=== PATIENT | male | born 1970 | race Caucasian/White ===

== ENCOUNTER 2020-06-05 12:09 | Observation (INO) | payer BC ==
[2020-06-05] MEDS ORDERED: Sodium Chloride 0.9% 1,000 ML IV ONE (12:45)
[2020-06-05] MEDS ORDERED: Sodium Chloride 0.9% 10 ML Syringe FLUSH PRN (12:45)
--- NOTE | 2020-06-05 12:45 | EDM.PDOC ---
ED HPI GENERAL MEDICAL PROBLEM - General Chief Complaint: General Stated Complaint: low blood pressure Time Seen by Provider: 06/05/20 12:25 Source of Information: Reports: Patient History Limitations: Reports: No Limitations - History of Present Illness INITIAL COMMENTS - FREE TEXT/NARRATIVE: 49 YO WM PRESENTS TO ER COMPLAINING OF DIZZINESS/NEAR SYNCOPE THIS AM. PT REPORTS ONGOING EVALUATION OF SIMILAR SYMPTOMS IN THE PAST BUT TODAY HE TOOK HIS BLOOD PRESSURE AND FOUND IT TO BE LOW PROMPTING ER EVALUATION. PT REPORTS HE HAS BEEN DEALING WITH DIZZINESS/NEAR SYNCOPE SINCE 10/2019. PT REPORTS HE'S HAD MULTIPLE TESTS PERFORMED BY CARDIOLOGY WITHOUT ANY ABNORMAL FINDINGS. PT REPORTS HE'S HAD A HEAD CT IN THE RECENT PAST AND HAD A CT ABD/PELVIS YESTERDAY WHICH WAS NEGATIVE PER REPORT. PT COULD NOT BE MORE SPECIFIC ON CARDIAC TESTS, BUT I BELIEVE HE HAD A TILT TABLE TEST, STRESS TEST AND ECHO CARDIOGRAM. PT REPORTS OVER THE LAST 2 MONTHS HE'S HAD LUQ ABDOMINAL PAIN. PT DENIES CHEST PAIN, SHORTNESS OF BREATH, DIAPHORESIS, NAUSEA/VOMITING. PT REPORTS DIZZINESS/NEAR SYNCOPE ONLY. PT DENIES FEVER/CHILLS, NO COUGH/CONGESTION. PT REPORTS PAIN IS RELIEVED BY LYING ON HIS LEFT SIDE. Onset: Unknown/Unsure Duration: Chronic, Waxing/Waning Location: Reports: Abdomen, Generalized Quality: Reports: Ache Severity: Moderate Improves with: Reports: Other (LYING ON LEFT SIDE) Worsens with: Reports: None. Denies: Breathing, Movement Associated Symptoms: Reports: No Other Symptoms. Denies: Chest Pain, Cough, Diaphoresis, Fever/Chills, Headaches, Nausea/Vomiting, Rash, Seizure, Shortness of Breath, Syncope, Weakness Left Upper Abdomen Pain Score (Numeric/FACES): 7 - Related Data Allergies Allergy/AdvReac Type Severity Reaction Status Date / Time codeine Allergy Nausea and Verified 06/05/20 12:23 Vomiting Home Meds: Home Meds Sildenafil Citrate [Viagra] 50 mg PO DAILY PRN 06/22/16 [History] Testosterone [Androgel] 1 applic TOP DAILY 07/26/17 [History] atorvaSTATin [Lipitor] 20 mg PO BEDTIME 07/26/17 [History] Lisinopril 5 mg PO DAILY 07/28/17 [History] Cetirizine HCl [Zyrtec] 10 mg PO DAILY 06/05/20 [History] Ciprofloxacin HCl [Cipro] 500 mg PO BID 06/05/20 [History] DULoxetine HCl [Cymbalta] 60 mg PO DAILY 06/05/20 [History] Empagliflozin [Jardiance] 25 mg PO DAILY 06/05/20 [History] Etodolac 500 mg PO BID 06/05/20 [History] [place]-3 Fatty Acids/Fish Oil [Fish Oil 1,000 mg Capsule] 1 each PO BEDTIME 06/05/20 [History] metFORMIN HCl [Metformin HCl] 1,000 mg PO BID 06/05/20 [History] metroNIDAZOLE [Flagyl] 500 mg PO Q8H 06/05/20 [History] tiZANidine HCl [Tizanidine HCl] 4 mg PO Q8H PRN 06/05/20 [History] Past Medical History HEENT History: Reports: Hard of Hearing, Impaired Vision, Other (See Below) Other HEENT History: Glasses, 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, color blindness, chronic tinnitus Cardiovascular History: Reports: Arrhythmia, High Cholesterol, Hypertension, Syncope, Other (See Below) Other Cardiovascular History: Near syncope on 07/26/17, Sinus Tachycardia Respiratory History: Reports: COPD, Sleep Apnea, Other (See Below) Other Respiratory History: Patient unable to tolerate CPAP Gastrointestinal History: Reports: GERD Genitourinary History: Reports: Other (See Below) Other Genitourinary History: Erectile dysfunction Musculoskeletal History: Reports: Arthritis, Back Pain, Chronic, Neck Pain, Chronic, Osteoarthritis, Other (See Below) Other Musculoskeletal History: bone spurs in feet Neurological History: Reports: Headaches, Chronic, Migraines Psychiatric History: Reports: Anxiety, Depression Endocrine/Metabolic History: Reports: Diabetes, Type II, Obesity/BMI 30+ Other Endocrine/Metabolic History: Testosterone deficiency, hypoalbuminemia Hematologic History: Reports: None Immunologic History: Reports: None Oncologic (Cancer) History: Reports: None Dermatologic History: Reports: None - Infectious Disease History Infectious Disease History: Reports: Chicken Pox - Past Surgical History Head Surgeries/Procedures: Reports: None HEENT Surgical History: Reports: Adenoidectomy, Oral Surgery, Tonsillectomy, Other (See Below) Other HEENT Surgeries/Procedures: Tonsillectomy and adenoidectomy at about age 18, [place] teeth extraction 3 at age 18 Cardiovascular Surgical History: Reports: None Respiratory Surgical History: Reports: None GI Surgical History: Reports: Appendectomy, Colonoscopy, EGD, Other (See Below) Other GI Surgeries/Procedures: Appendectomy at age 17, EGD and colonoscopy in 1991 Male Surgical History: Reports: Circumcision, Vasectomy, Other (See Below) Other Male Surgeries/Procedures: Circumcision as an , vasectomy at age 25 Endocrine Surgical History: Reports: None Neurological Surgical History: Reports: None Musculoskeletal Surgical History: Reports: None Oncologic Surgical History: Reports: None Dermatological Surgical History: Reports: None - Past Imaging History Past Imaging History: Reports: MRI (MRI of the right shoulder in about 2011), Sleep Study Social & Family History - Family History Family Medical History: Noncontributory HEENT: Reports: None Cardiac: Reports: Bypass, CAD, RI, Other (See Below) Other Cardiac Family History: Maternal uncle with RI in his 40s, mother with CABG x4 in her 60s with history of silent MIs Respiratory: Reports: Asthma, COPD, Other (See Below) Other Respiratory Family Hisory: 3 children of asthma, maternal grandfather with COPD with history of tobacco use, father with possible COPD secondary to tobacco use GI: Reports: Colon Polyps, Pancreatitis, Other (See Below) Other GI Family History: maternal father with colonic polyps, father with history pancreatitis secondary to alcohol abuse : Reports: None OBGYN: Reports: None Musculoskeletal: Reports: None Neurological: Reports: CVA, Seizure, Other (See Below) Other Neurological Family History: paternal great grandmother with CVA at about age 92, son with seizures since age 16 secondary to football injury Psychiatric: Reports: Anxiety, Depression, Other (See Below) Other Psychiatric Family History: Father with history of alcohol abuse, anxiety, and depression with subsequent postoperative narcotic addiction Endocrine/Metabolic: Reports: Diabetes, type II, IDDM, Other (See Below) Other Endocrine/Metabolic Family History: IDDM in parents Hematologic: Reports: Anemia, Other (See Below) Other Hematologic Family History: Father with postoperative anemia Immunologic: Reports: None Dermatologic: Reports: Eczema, Other (See Below) Other Dermatologic Family History: Son with eczema Oncologic: Reports: Colon, Pancreatic, Other (See Below) Other Oncologic Family History: Paternal grandmother with fatal pancreatic cancer in her 80s, possible fatal colon cancer in maternal grandfather in his 80s, paternal grandaunt with fatal unknown type of cancer in her 60s - Tobacco Use Smoking Status *Q: Current Every Day Smoker Years of Tobacco use: 15 Packs/Tins Daily: 0.2 Second Hand Smoke Exposure: No - Caffeine Use Caffeine Use: Reports: Soda - Alcohol Use Days Per Week of Alcohol Use: 3 Number of Drinks Per Day: 3 Total Drinks Per Week: 9 - Recreational Drug Use Recreational Drug Use: No - Living Situation & Occupation Living situation: Reports: (2005, 3 children), Alone 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 Denies: Chest Pain, Dyspnea on Exertion, Edema, Orthopnea, Palpitations, PND, Syncope Endocrine: Reports: No Symptoms GI/Abdominal: Reports: No Symptoms : Reports: No Symptoms Musculoskeletal: Reports: No Symptoms Skin: Reports: No Symptoms Neurological: Reports: No Symptoms Psychiatric: Reports: No Symptoms Hematologic/Lymphatic: Reports: No Symptoms Immunologic: Reports: No Symptoms ED EXAM, GENERAL - Physical Exam Exam: See Below Exam Limited By: No Limitations General Appearance: Alert, WD/WN, No Apparent Distress Eye Exam: Bilateral Eye: EOMI, PERRL Ears: Normal External Exam, Normal Canal, Hearing Grossly Normal, Normal TMs Throat/Mouth: Normal Inspection, Normal Lips, Normal Teeth, Normal Gums, Normal Oropharynx, Normal Voice, No Airway Compromise Head: Atraumatic, Normocephalic Neck: Normal Inspection, Supple, Non-Tender, Full Range of Motion Respiratory/Chest: No Respiratory Distress, Lungs Clear, Normal Breath Sounds, No Accessory Muscle Use, Chest Non-Tender Cardiovascular: Normal Peripheral Pulses, Regular Rate, Rhythm, No Edema, No Gallop, No JVD, No Murmur, No Rub GI/Abdominal: Normal Bowel Sounds, Soft, Non-Tender, No Organomegaly, No Distention, No Abnormal Bruit, No Mass Back Exam: Normal Inspection, Full Range of Motion, NT Extremities: Normal Inspection, Normal Range of Motion, Non-Tender, Normal Capillary Refill, No Pedal Edema Neurological: Alert, Oriented, CN II-XII Intact, Normal Cognition, Normal Gait, Normal Reflexes, No Motor/Sensory Deficits Psychiatric: Normal Affect, Normal Mood Skin Exam: Warm, Dry, Intact, Normal Color, No Rash Lymphatic: No Adenopathy EKG INTERPRETATION EKG Date: 06/05/20 Time: 13:08 Rhythm: NSR Rate (Beats/Min): 53 [place]: Normal P-Wave: Present QRS: Normal ST-T: Normal QT: Normal Comparison: NA - No Prior EKG Course - Vital Signs Last Recorded V/S: Last Vital Signs Temp 36.1 C 06/05/20 12:14 Pulse 50 L 06/05/20 12:14 Resp 18 06/05/20 12:14 BP 100/66 06/05/20 12:14 Pulse Ox 96 06/05/20 12:14 Orthostatic Blood Pressure [ 102/63 Standing] Orthostatic Blood Pressure [ 99/72 Sitting] Orthostatic Blood Pressure [ 98/65 Supine] - Orders/Labs/Meds Orders: Active Orders 24 hr Category Date Time Status EKG Documentation Completion [RC] ASDIRECTED Care 06/05/20 12:46 Ordered Orthostatic Vital Signs [RC] ASDIRECTED Care 06/05/20 12:45 Ordered Peripheral IV Care [RC] . DIRECTED Care 06/05/20 12:46 Ordered Sodium Chloride 0.9% @ 999 MLS/HR (1000ml) Med 06/05/20 12:45 Ordered Sodium Chloride 0.9% [Normal Saline] 1,000 ml IV .BOLUS Sodium Chloride 0.9% [Saline Flush] Med 06/05/20 12:45 Ordered 10 ml FLUSH Q8HR PRN Peripheral IV Insertion Adult [OM.PC] Routine Oth 06/05/20 12:45 Ordered EKG 12 Lead [EK] Stat Ther 06/05/20 12:45 Ordered Medication Orders Sodium Chloride (Normal Saline) 1,000 mls @ 999 mls/hr IV .BOLUS ONE Stop: 06/05/20 13:45 Last Admin: 06/05/20 13:10 Dose: 999 mls/hr Documented by: DANIA Sodium Chloride (Saline Flush) 10 ml FLUSH Q8HR PRN PRN Reason: keep vein open Labs: Laboratory Tests 06/05/20 06/05/20 Range/Units 12:55 12:55 WBC 6.00 (5.00-10.00) 10^3/uL RBC 5.43 (4.50-6.00) 10^6/uL Hgb 16.2 (13.0-17.0) g/dL Hct 49.3 (40.0-52.0) % MCV 90.8 (82.0-92.0) fL MCH 29.8 (27.0-31.0) pg MCHC 32.9 (32.0-36.0) g/dL RDW 12.7 (11.5-14.5) % Plt Count 266 (150-400) 10^3/uL MPV 8.9 (7.4-10.4) fL Immature Gran % (Auto) 0.0 (0.0-5.0) % Neut % (Auto) 53.7 (50.0-70.0) % Lymph % (Auto) 34.7 (20.0-40.0) % [place] % (Auto) 8.0 (2.0-8.0) % Eos % (Auto) 3.3 H (1.0-3.0) % Baso % (Auto) 0.3 (0.0-1.0) % Neut # (Auto) 3.22 (2.50-7.00) 10^3/uL Lymph # (Auto) 2.08 (1.00-4.00) 10^3/uL [place] # (Auto) 0.48 (0.10-0.80) 10^3/uL Eos # (Auto) 0.20 (0.10-0.30) 10^3/uL Baso # (Auto) 0.02 (0.00-0.10) 10^3/uL Immature Gran # (Auto) 0.00 (0.00-0.50) 10^3/uL Sodium 138 (136-145) mmol/L Potassium 4.4 (3.3-5.3) mmol/L Chloride 103 (98-115) mmol/L Carbon Dioxide 27.3 (21.0-32.0) mmol/L Anion Gap 12.1 (5-15) mmol/L BUN 20 (6-25) mg/dL Creatinine 1.11 (0.51-1.17) mg/dL Est Cr Clr Drug Dosing 82.21 mL/min Estimated GFR (MDRD) > 60 mL/min Glucose 98 (75 - 99) mg/dL Calcium 8.9 (8.7-10.3) mg/dL Total Bilirubin 0.8 (0.2-1.0) mg/dL AST 15 (15-37) U/L ALT 29 (12-78) U/L Alkaline Phosphatase 41 L (46-116) IU/L Creatine Kinase 193 (26-276) U/L CK-MB (CK-2) 2.30 (0.00-4.30) ng/mL Troponin I 0.12 H* (0.00-0.070) ng/mL Total Protein 7.2 (6.4-8.2) g/dL Albumin 3.91 (3.00-4.80) g/dL Lipase 124 (73-393) U/L Meds: Medications Generic Name Dose Route Start Last Admin Trade Name Freq PRN Reason Stop Dose Admin Sodium Chloride 1,000 mls @ 999 mls/hr 06/05/20 12:45 06/05/20 13:10 Normal Saline IV 06/05/20 13:45 999 mls/hr .BOLUS ONE Administration Sodium Chloride 10 ml 06/05/20 12:45 Saline Flush FLUSH Q8HR PRN keep vein open Discontinued Medications Generic Name Dose Route Start Last Admin Trade Name Freq PRN Reason Stop Dose Admin Ketorolac Tromethamine 30 mg 06/05/20 12:58 06/05/20 13:11 Toradol IVPUSH 06/05/20 12:59 30 mg ONETIME ONE Administration - Radiology Interpretation Free Text/Narrative:: CXR-NAD Departure - Departure Time of Disposition: 13:53 Disposition: Refer to Observation Condition: Good Clinical Impression: Near syncope, Elevated troponin I level - Discharge Information Referrals: Elmer Mccoy MD [Primary Care Provider] - Forms: ED Department Discharge Sepsis Event Note (ED) - Evaluation Sepsis Screening Result: No Definite Risk - Focused Exam Vital Signs: Vital Signs Temp Pulse Resp BP Pulse Ox 06/05/20 12:14 36.1 C 50 L 18 100/66 96 - My Orders Last 24 Hours: My Active Orders 06/05/20 12:45 Orthostatic Vital Signs [RC] ASDIRECTED Sodium Chloride 0.9% @ 999 MLS/HR (1000ml) Sodium Chloride 0.9% [Normal Saline] 1,000 ml IV .BOLUS Sodium Chloride 0.9% [Saline Flush] 10 ml FLUSH Q8HR PRN Peripheral IV Insertion Adult [OM.PC] Routine EKG 12 Lead [EK] Stat 06/05/20 12:46 EKG Documentation Completion [RC] ASDIRECTED Peripheral IV Care [RC] . DIRECTED - Assessment/Plan Last 24 Hours: My Active Orders 06/05/20 12:45 Orthostatic Vital Signs [RC] ASDIRECTED Sodium Chloride 0.9% @ 999 MLS/HR (1000ml) Sodium Chloride 0.9% [Normal Saline] 1,000 ml IV .BOLUS Sodium Chloride 0.9% [Saline Flush] 10 ml FLUSH Q8HR PRN Peripheral IV Insertion Adult [OM.PC] Routine EKG 12 Lead [EK] Stat 06/05/20 12:46 EKG Documentation Completion [RC] ASDIRECTED Peripheral IV Care [RC] . DIRECTED Assessment:: 1. NEAR SYNCOPE 2. TROP I ELEVATION Plan: 1. ADMIT TO OBS- DR JUAREZ ACCEPTING 2. TROP I Q 4 X 3 3. ASA 325MG PO QD 4. SUPPORTIVE CARE 5. REPEAT EKG IN 4 HOURS 6. ALL ORDERS GIVEN VERBALLY PER DR LARRY LUNA
[2020-06-05] MEDS ORDERED: Ketorolac 30 MG/ML SDV IVPUSH ONE (12:58)
--- NOTE | 2020-06-05 13:26 | CR ---
[id number] RAD/RAD Chest PA And Lateral EXAM: FRONTAL AND LATERAL CHEST INDICATION: SYNCOPE. COMPARISON: None. DISCUSSION: There is mild elevation of the right hemidiaphragm. The lungs are clear. The heart is normal in size. IMPRESSION: 1. No acute findings. Favian Roque MD 06/05/20 1290 Thank you for allowing us to participate in the care of your patient.
[2020-06-05 13:35] LABS: ANION GAP 12.1 mmol/L (5-15); CHLORIDE,CL 103 mmol/L (98-115); SODIUM,NA 138 mmol/L (136-145)
[2020-06-05] MEDS ORDERED: Aspirin 81 MG Tab.Chew PO ONE (13:51)
[2020-06-05] MEDS: Sodium Chloride 0.9% 1,000 ML IV SCH ×2 (15:44→23:41)
[2020-06-05] MEDS ORDERED: tiZANidine 4 MG Tab PO PRN (17:35)
[2020-06-05] MEDS ORDERED: Acetaminophen 500 MG Tab PO PRN (19:10)
[2020-06-05] MEDS ORDERED: Ondansetron 4 MG/2 ML SDV IVPUSH PRN (19:44)
--- NOTE | 2020-06-05 19:49 | HP ---
PATIENT PROFILE: The patient is a 49-year-old gentleman from [place], [place], who presented to the emergency room earlier in the morning. His main complaint at the time of his presentation to the emergency room was dizziness and near syncopal episode. The patient has been evaluated for this in the past. Today, he took his blood pressure and found to be quite low, prompting his ER evaluation. He has been dealing with the dizziness and near- syncope since October 2019. Apparently, he has had multiple tests performed by Cardiology without any abnormal findings including a tilt test. He had a head CT in the past and a recent CT abdomen and pelvis, which was negative for any acute problems. He previously has had a stress test and echocardiogram and tiolt table test also. Over the last two months, he has been complaining of left upper quadrant pain. Currently, he denies having any chest pain, shortness of breath, diaphoresis, nausea or vomiting. He only has dizziness and near syncope. He denies having any fever, chills, abdomen pain, cough, congestion. He does have some pain which is relieved by lying on his left side. His CAT scan did show some mild diverticulosis without acute diverticulitis. Status post appendectomy. He does have a smaller right kidney and hypertrophic left kidney. Etiology of the smaller right kidney is not known at this time. PAST MEDICAL HISTORY: Of this patient includes: ENT and Vision: HISTORY: He does have some hardness of hearing and slightly impaired vision. He wears glasses. 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 No color blindness. He does have chronic tinnitus. CARDIOVASCULAR HISTORY: He has some slight high blood pressure, high cholesterol. Please see present history and history of arrhythmia. The patient had near syncope on 07/26/2017. He had sinus tachycardia at that time. RESPIRATORY: No complaints. The patient has had some sleep apnea issues, but was unable to tolerate the CPAP machine. GASTROINTESTINAL HISTORY: The patient does have GERD. HISTORY: Negative except for erectile dysfunction. He does take sildenafil for that problem on a p.r.n. basis. MUSCULOSKELETAL HISTORY: The patient does have history of arthritis with the back pain, chronic neck pain. He has some bone spurs in his feet. NEUROLOGICAL HISTORY: Occasional headaches and chronic migraines. PSYCHIATRIC HISTORY: He does have anxiety, depression. ENDOCRINE: Metabolic. He does have type 2 diabetes mellitus. He does have a BMI of 30+. The patient has testosterone deficiency and slight hypoalbuminemia. INFECTIOUS DISEASE: The patient had chicken pox. PAST SURGICAL HISTORY: PAST HEAD AND NECK PROCEDURES: He has had adenoidectomy, oral surgery, tonsillectomy at age 18. [place] tooth extraction at age 18. CARDIOVASCULAR SURGICAL HISTORY: None. RESPIRATORY SURGICAL HISTORY: Nil. GI SURGICAL HISTORY: Appendectomy, colonoscopy, EGD. The last colonoscopy was in 1991. EGD was also done at that time. PAST GENITAL SURGICAL HISTORY: Circumcision, vasectomy. ENDOCRINE SURGICAL HISTORY: None. NEUROSURGICAL HISTORY: None. MUSCULOSKELETAL SURGICAL HISTORY: None. ONCOLOGICAL SURGICAL HISTORY: None. DERMATOLOGICAL SURGICAL HISTORY: None. PAST IMAGING HISTORY: MRI of the right shoulder in 2011, sleep study. FAMILY HISTORY: Mother had history of coronary disease at an early age. Also has history of silent MIs. In addition she had coronary artery bypass surgery. HEENT: Negative. CARDIAC: The patient's mother had bypass surgery and coronary artery disease at an early age. Maternal uncle also had DE in his 40s. Mother had CABG in his 60s with history of silent MIs. RESPIRATORY: History of asthma, COPD, others. Family history showed three three children with asthma. Maternal grandfather with COPD and tobacco usage. Father has possible COPD secondary to tobacco usage. GI SYSTEM: He has had a history of colon polyps and pancreatitis in the past. Other GI family history nil. MUSCULOSKELETAL: Negative. NEUROLOGICAL: No history of CVA, seizures. PSYCHIATRIC HISTORY: With anxiety, depression. IMMUNOLOGICAL: Negative. DERMATOLOGICAL: Negative. SOCIAL HISTORY: TOBACCO USE: The patient is a current every day smoker. Years of use is 15. He smokes 0.2 packs a day. Secondhand smoke exposure negative. CAFFEINE: Reports using soda. ALCOHOL: 3 days of a week, three drinks per day, total drinks 9. RECREATIONAL DRUG USE: Nil. LIVING SITUATION, OCCUPATION: He is in 2004. Three children. 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 REVIEW OF SYSTEMS: CONSTITUTIONAL: Negative. HEENT: Negative. RESPIRATORY: Negative. CARDIOVASCULAR: See present history. ENDOCRINE: See present history. GI: Abdomen, see present history. MUSCULAR SYSTEM: See present history. SKIN: Negative. NEUROLOGIC: Negative. HEMATOLOGIC: Negative. PHYSICAL EXAMINATION: GENERAL: Reveals a very pleasant, slightly obese gentleman in no immediate distress. He was seen in his room. He is comfortable. VITAL SIGNS: Pulse is 50, respirations are 18, blood pressure 100/66, pulse oximetry is 96, temperature is normal. HEAD: Negative. EYES: Normal. ENT: Negative. NECK: Supple. Full range of motion. No midline swellings. No bruits are heard. HEART/LUNGS: Stable. ABDOMEN: Soft, slight tenderness in the left lower quadrant. No rebound. No rigidity. No masses. Bowel tones normal. Femoral pulses are good. BACK: Negative. EXTREMITIES: Normal. NEUROLOGICAL: Intact. PSYCHIATRIC: Negative. SKIN: Negative. LYMPHATIC: Negative. DIAGNOSTIC STUDIES: EKG shows normal sinus rhythm, heart rate 53, P-wave present, QRS normal, ST-T normal, QT normal. Initial blood pressure was between 99/72 to 102/63. He was started on IV fluids. His hemoglobin is 16.2, white count 6000. Electrolytes are normal. BUN and creatinine are normal. Troponin level was 0.12 on admission and 4 hours later was the same at 0.12. Total protein, albumin, and lipase were negative. FINAL DIAGNOSES: 1. History of low blood pressure, near syncope, and dizziness. Exact etiology is not determined. The patient did have some loose stools over the last couple of days. It could be due to slight dehydration. The patient is on low-dose lisinopril at 2.5 mg, and I doubt that this has anything to do with his low blood pressure. ? Diabetic autonomic neuropathy. 2. Type 2 diabetes mellitus, stable. 3. History of mild diverticulosis, but no diverticulitis. Status post appendectomy. 4. Slightly atrophic right kidney and hypertrophic left kidney. 5. History of depression. 6. History of hypercholesteremia. 7. History of musculoskeletal arthritis. 8. History of erectile dysfunction. PLAN: Will be to admit to the hospital. Repeat EKG and cardiac enzymes. Monitor his blood pressures. Continue IV fluids. Start him back on atorvastatin 20 mg daily, lisinopril 2.5 mg daily. Continue Jardiance 25 mg daily, tizanidine 4 mg q.8 h. on a p.r.n. basis. Hold Cipro and Flagyl as no evidence of acute diverticulitis or infection is found at this time. May use zyrtec for allergies. May also continue AndroGel. Hold Viagra. Follow up closely. /[id number]/MODL [id number]
[2020-06-05] MEDS: Morphine 2 MG/ML SYRINGE IVPUSH PRN ×2 (20:25→23:41)
[2020-06-05] MEDS: Sodium Chloride 0.9% 10 ML Syringe FLUSH PRN ×2 (20:33→23:42)
[2020-06-05] MEDS ORDERED: metFORMIN 500 MG Tab.ER PO SCH (21:00)
[2020-06-05] MEDS ORDERED: Lisinopril 5 MG Tab PO SCH (21:00)
[2020-06-05] MEDS ORDERED: ETODOLAC 500 MG PO SCH (21:00)
[2020-06-05] MEDS ORDERED: atorvaSTATin 40 MG Tab PO SCH (21:00)
[2020-06-06] MEDS: Aluminum Hydroxide/Magnesium Hydroxide/Simethicone Susp 30 ML Cup PO PRN ×2 (01:57→07:25)
[2020-06-06] MEDS: Morphine 2 MG/ML SYRINGE IVPUSH PRN ×2 (04:43→07:34)
[2020-06-06] MEDS: Sodium Chloride 0.9% 10 ML Syringe FLUSH PRN (04:44)
[2020-06-06] MEDS: Sodium Chloride 0.9% 1,000 ML IV SCH (07:42)
[2020-06-06] MEDS ORDERED: TESTOSTERONE TOP SCH (09:00)
[2020-06-06] MEDS ORDERED: Cetirizine 10 MG Tab PO SCH (09:00)
[2020-06-06] MEDS ORDERED: DULoxetine 30 MG Cap PO SCH (09:00)
[2020-06-06] MEDS ORDERED: Dicyclomine 20 MG/2 ML SDV IM ONE (10:51)
[2020-06-06 11:42] VITALS: PULSE 63
[2020-06-06 13:36] VITALS: BP 144/100
--- NOTE | 2020-06-08 11:22 | PCM.DCSUM1 ---
Discharge Summary - Hospital Course Diagnosis: Stroke: No - Discharge Data Discharge Date: 06/06/20 Discharge Disposition: Home, Self-Care 01 Condition: Good - Referral to Home Health Primary Care Physician: Elmer Mccoy MD - Patient Instructions Diet: Drink 8-10+ Glasses/Day Diet, Other: gradually increase fiber in diet. See details Activity: Rest and Relax Today Driving: May Drive Today Showering/Bathing: May Shower Notify Provider of: Fever, Increased Pain, Nausea and/or Vomiting Other/Special Instructions: Recommendations include: Diet changes are often enough to control symptoms. The main changes are adding fiber (roughage) and drinking more water. Fiber absorbs water as it travels through your colon. This helps your stool stay soft and move smoothly. Water helps this process. If needed, you may be told to take [id number] stool softeners. To help ease pain, antispasmodic medicines may be prescribed. Watch for changes in your bowel movements. Tell your healthcare provider if you notice any changes. Begin an exercise program. Ask your healthcare provider how to get started. Get plenty of rest and sleep.. If you have diverticulitis. Treatment depends on how bad your symptoms are. For mild symptoms. You may be put on a liquid diet for a short time. Antibiotics are usually prescribed. If these 2 steps relieve your symptoms, you may then be prescribed a high-fiber diet. If you still have symptoms, your healthcare provider will discuss more treatment choices with you. For severe symptoms. You may need to be admitted to the hospital. There, you can be given IV antibiotics and fluids. You will also be put on a low-fiber or liquid diet. Although not common, surgery is needed in some people with severe symptoms. [place] to colon health. Help keep your colon healthy with a diet that includes plenty of high-fiber fruits, vegetables, and whole grains. Drink plenty of liquids like water and juice. Maintain a healthy lifestyle, including regular exercise, stress management, and adequate rest and sleep.. Modifiable risk factors: Tobacco use, over weight, diet, excercise, stress reduction - Discharge Plan *PRESCRIPTION DRUG MONITORING PROGRAM REVIEWED*: Not Applicable *COPY OF PRESCRIPTION DRUG MONITORING REPORT IN PATIENT JAY: Not Applicable Prescriptions/Med Rec: Aspirin 81 mg PO DAILY #30 tab.chew Omeprazole 20 mg PO ACBREAKFAST #30 cap.sr Home Medications: Home Meds Testosterone [Androgel] 1 applic TOP DAILY 07/26/17 [History] atorvaSTATin [Lipitor] 40 mg PO BEDTIME 07/26/17 [History] Lisinopril 2.5 mg PO BEDTIME 07/28/17 [History] Cetirizine HCl [Zyrtec] 10 mg PO DAILY 06/05/20 [History] DULoxetine HCl [Cymbalta] 60 mg PO DAILY 06/05/20 [History] Empagliflozin [Jardiance] 25 mg PO DAILY 06/05/20 [History] Etodolac 500 mg PO BID 06/05/20 [History] [place]-3 Fatty Acids/Fish Oil [Fish Oil 1,000 mg Capsule] 1 each PO BEDTIME 06/05/20 [History] metFORMIN HCl [Metformin HCl ER] 1,000 mg PO BID 06/05/20 [History] tiZANidine HCl [Tizanidine HCl] 4 mg PO Q8H PRN 06/05/20 [History] Aspirin 81 mg PO DAILY #30 tab.chew 06/06/20 [Rx] Omeprazole 20 mg PO ACBREAKFAST #30 cap.sr 06/06/20 [Rx] Referrals: Elmer Mccoy MD [Primary Care Provider] - - Discharge Summary/Plan Comment DC Time >30 min.: Yes Discharge Summary/Plan Comment: Final diagnosis Non-STEMI, possible type II Rule out limited flow disease Acid reflux Diverticula, acute on chronic History summary 49-year-old obese gentleman was admitted through the ED into observation for rule out LA. Patient had initially came to the ED with some dizziness and near syncope the morning of admission. At home he felt his blood pressure to be low so he reported to the ED. He has had labile blood pressures and has been worked up in the past for this without any definitive etiology other than making adjustments to his low dose ADONIS inhibitor. It was noted for him to have slightly elevated cardio biomarkers in the ED with a BP 100/66 along with dizziness. His main PCP is ASHLEIGH Moreno however he did see Krupa Monteiro [facility] in which an abdominal CT scan (see results below). Patient report over the last 2 months with left upper quadrant abdominal pain. In the ED he did not complain of chest pain shortness of breath diaphoresis nausea or vomiting or any fever or chills or any upper respiratory type symptoms. His pain was reported to be relieved by lying on his left side. A she was placed on Cipro and Flagyl as outpatient due to diverticula however since CT scan did not demonstrate any inflammation this was discontinued on admission. He was given IV fluids. ED/Hospital course Admitted to observation, initial blood pressure low, he was continued on low- dose lisinopril. BP in ED 100/66, afebrile, neg covid-19, electrolytes normal, troponin slightly elevated at 0.12 and subsequent troponins were about the same. Normal renal indices. He was placed on telemetry with no overnight calls of concerning conduction problems or telemetry problems. He was given Mylanta and is epigastric pain dissolved instantly. EKG shows normal sinus rhythm heart rate 53 all else normal. Full dose 324 aspirin given 1. He was not placed on any anticoagulants. 's main concern while in the hospital was ongoing chronic left lower lobe abdominal pain. He was given increased fiber for dietary purpos es. Prior to discharge this author gave him 20 mg of Bentyl IM 1 and he did have some relief of his abdominal pain. Diagnostics --06/04/2020; abdominal CT with contrast, although no acute process Incidentally demonstrate a small intraluminal lipoma within second portion of duodenum. Colon: There are diverticula scattered along the sigmoid colon without acute diverticulitis. Other than this, the colon is grossly unremarkable. --07/2017; echocardiogram; EF 55%, pericardial fat otherwise non-concerning --07/2017; stress echo (due to chest pain) normal, other than isolated premature ventricular beats Consultations [facility] hospitalist was consulted as I cannot reach [place] keg filler. His [place] chart was reviewed carefully by on-call hospitalist and noted November 2019 had normal Lexiscan. [facility] he had seen his primary care provider linden crystal adjustments made on BP meds. 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 We will contact the patient. Patient was given careful instructions regarding diverticula, likely possible sigmoid resection, full workup with cardiology soon. Modifiable risk factor reduction important. He is to report to the ED for any chest pain or further dizziness. If microalbumin is normal I recommend removing off of ADONIS inhibitor. Follow-up Tuesday with myself [facility]. Patient agreed with plan. - General Info Functional Status: Reports: Ambulating. Denies: Pain Controlled (Left sided abdominal pain chronic), New Symptoms - Review of Systems General: Denies: Fever, Weakness, Fatigue, Malaise HEENT: Reports: No Symptoms Pulmonary: Reports: No Symptoms Cardiovascular: Reports: No Symptoms Gastrointestinal: Reports: Abdominal Pain, Other (Mild acid reflux symptoms, resolved with antacids immediately). Denies: Constipation, Decreased Appetite, Diarrhea, Difficulty Swallowing, Flatus, Hematochezia, Melena, Nausea, Vomiting Genitourinary: Reports: No Symptoms Musculoskeletal: Reports: No Symptoms Skin: Reports: No Symptoms Neurological: Reports: No Symptoms Psychiatric: Reports: No Symptoms - Patient Data Vitals - Most Recent: Last Vital Signs Temp 97 F 06/06/20 11:00 Pulse 63 06/06/20 11:00 Resp 16 06/06/20 11:00 BP 144/100 H 06/06/20 13:36 Pulse Ox 97 06/06/20 11:00 Orthostatic Blood Pressure [ 102/63 Standing] Orthostatic Blood Pressure [ 99/72 Sitting] Orthostatic Blood Pressure [ 98/65 Supine] Weight - Most Recent: 225 lb 3.2 oz Med Orders - Current: Current Medications Discontinued Medications Acetaminophen (Tylenol Extra Strength) 500 mg PO Q6H PRN PRN Reason: Pain Al Hydroxide/Mg Hydroxide (Mag-Al Plus) 30 ml PO QID PRN PRN Reason: Heartburn Last Admin: 06/06/20 07:25 Dose: 30 ml Documented by: Aspirin (Aspirin) 324 mg PO ONETIME ONE Stop: 06/05/20 13:52 Last Admin: 06/05/20 14:02 Dose: 324 mg Documented by: Atorvastatin Calcium (Lipitor) 40 mg PO BEDTIME [facility] Last Admin: 06/05/20 21:20 Dose: 40 mg Documented by: Cetirizine HCl (Zyrtec) 10 mg PO DAILY [facility] Last Admin: 06/06/20 08:05 Dose: 10 mg Documented by: Dicyclomine HCl (Bentyl) 20 mg IM ONETIME ONE Stop: 06/06/20 10:52 Last Admin: 06/06/20 11:49 Dose: 20 mg Documented by: Duloxetine HCl (Cymbalta) 60 mg PO DAILY [facility] Last Admin: 06/06/20 08:05 Dose: 60 mg Documented by: Sodium Chloride (Normal Saline) 1,000 mls @ 999 mls/hr IV .BOLUS ONE Stop: 06/05/20 13:45 Last Admin: 06/05/20 13:10 Dose: 999 mls/hr Documented by: Sodium Chloride (Normal Saline) 1,000 mls @ 125 mls/hr IV ASDIRECTED [facility] Last Admin: 06/06/20 07:42 Dose: 125 mls/hr Documented by: Ketorolac Tromethamine (Toradol) 30 mg IVPUSH ONETIME ONE Stop: 06/05/20 12:59 Last Admin: 06/05/20 13:11 Dose: 30 mg Documented by: Lisinopril (Prinivil) 2.5 mg PO BEDTIME [facility] Last Admin: 06/05/20 21:19 Dose: 2.5 mg Documented by: Metformin HCl (Glucophage Xr) 1,000 mg PO BID [facility] Morphine Sulfate (Morphine) 2 mg IVPUSH Q2H PRN PRN Reason: Pain Last Admin: 06/06/20 07:34 Dose: 2 mg Documented by: Non-Formulary Medication (Etodolac [Etodolac]) 500 mg PO BID [facility] Non-Formulary Medication (Testosterone [Androgel]) 1 applic TOP DAILY [facility] Ondansetron HCl (Zofran) 4 mg IVPUSH Q6H PRN PRN Reason: Nausea/Vomiting Sodium Chloride (Saline Flush) 10 ml FLUSH Q8HR PRN PRN Reason: keep vein open Sodium Chloride (Saline Flush) 10 ml FLUSH Q8HR PRN PRN Reason: keep vein open Last Admin: 06/06/20 04:44 Dose: 10 ml Documented by: Tizanidine HCl (Zanaflex) 4 mg PO Q8H PRN PRN Reason: Muscle Spasm - Exam Quality Assessment: Denies: Supplemental Oxygen General: Reports: Alert, Oriented Neck: Reports: Supple Lungs: Reports: Clear to Auscultation, Normal Respiratory Effort Cardiovascular: Reports: Regular Rate, Regular Rhythm GI/Abdominal Exam: Normal Bowel Sounds, No Distention, No Abnormal Bruit, No Mass. No: Rigid, Rebound, Abnormal Bowel Sounds Rectal (Males) Exam: Deferred Back Exam: Denies: CVA Tenderness (L), CVA Tenderness (R) Extremities: Normal Capillary Refill Psy/Mental Status: Reports: Alert, Normal Affect, Normal Mood
== END 2020-06-06 15:00 | disposition home or self-care (01) ==
LOC: KA.ED 12:09 → KA.MS 13:54
PROVIDERS: ADMIT Physician Assistant Medical; ATTEND Family Medicine
DX: I21.4 Non-ST elevation (NSTEMI) myocardial infarction (principal); I95.9 Hypotension, unspecified; K21.9 Gastro-esophageal reflux disease without esophagitis; E78.00 Pure hypercholesterolemia, unspecified; I10 Essential (primary) hypertension; R19.5 Other fecal abnormalities; J44.9 Chronic obstructive pulmonary disease, unspecified; G47.30 Sleep apnea, unspecified; E11.9 Type 2 diabetes mellitus without complications; E66.9 Obesity, unspecified; F41.9 Anxiety disorder, unspecified; F32.9 Major depressive disorder, single episode, unspecified; F17.210 Nicotine dependence, cigarettes, uncomplicated; K57.90 Diverticulosis of intestine, part unspecified, without perforation or abscess without bleeding; E86.0 Dehydration; N28.81 Hypertrophy of kidney; N26.1 Atrophy of kidney (terminal); Z87.39 Personal history of other diseases of the musculoskeletal system and connective tissue; Z79.899 Other long term (current) drug therapy; Z88.5 Allergy status to narcotic agent; Z79.84 Long term (current) use of oral hypoglycemic drugs; Z87.438 Personal history of other diseases of male genital organs; Z79.82 Long term (current) use of aspirin; Z68.32 Body mass index [BMI] 32.0-32.9, adult; Z20.828 Contact with and (suspected) exposure to other viral communicable diseases
CPT/HCPCS: 36415; 71046; 80053; 82550; 82553; 83690; 84484; 85025; 93005; 96361; 96372; 96374; 96375; 96376; 99284; 99285-25; A9270-GY; G0378; J0500; J1885; J2270; J7030; U0002

== ENCOUNTER 2020-07-28 08:01 | Day surgery (SDC) | payer BC, OTHER ==
[~2020-07-28 08:01] MED LIST: Sodium Chloride 0.9% 1,000 ML IV SCH; Sodium Chloride 0.9% 10 ML Syringe FLUSH PRN
[2020-07-28] MEDS ORDERED: Ondansetron 4 MG/2 ML SDV IV ONE (08:02)
[2020-07-28] MEDS ORDERED: Midazolam 1 MG/ML 2 ML SDV IV ONE (08:02)
[2020-07-28] MEDS ORDERED: Propofol 200 MG/20 ML SDV IV ONE (08:02)
[2020-07-28] MEDS ORDERED: Propofol 200 MG/20 ML SDV ONE (09:07)
[2020-07-28] MEDS ORDERED: Ketamine 200 MG/20 ML MDV ONE (09:07)
[2020-07-28] MEDS ORDERED: Midazolam 1 MG/ML 2 ML SDV ONE (09:07)
[2020-07-28] MEDS ORDERED: Glycopyrrolate 0.2 MG/ML SDV ONE (09:07)
[2020-07-28] MEDS ORDERED: Sodium Chloride 0.9% 1,000 ML ONE (10:03)
--- NOTE | 2020-07-28 10:42 | PCM.PRNOTE ---
- Free Text/Narrative Note: PROCEDURE PERFORMED: 1) Esophagogastroduodenoscopy with biopsy 2) Colonoscopy PRE-PROCEDURE DIAGNOSIS/INDICATION FOR PROCEDURE: Persistent epigastric and LUQ abdominal pain, screening for colorectal cancer CONSENT: Informed consent was obtained prior to the procedure after discussion of the risks (including pain, bleeding, infection, perforation, missed polyps, inability to completely remove polyps or complete procedure necessitating repeat colonoscopy, need for further procedures, adverse reaction to anesthesia, cardiovascular event), benefits and alternatives and expected outcomes. Verbal consent given and consent form signed. PROCEDURAL PAUSE: Completed SEDATION: Per anesthesia DESCRIPTION OF PROCEDURE: 1) Patient was brought back to the operating room and placed in a left lateral decubitus position. Bite block placed. After adequate sedation and anesthetic was administered, endoscope was inserted into the patient's mouth and was passed easily through the esophagus and stomach into the duodenum without difficulty. Examined duodenum normal appearing. Pylorus with mild gastritis; biopsies obtained to evaluate for H. pylori. Stomach, including viewing in retroflexion, normal appearing. No hiatal hernia. Gastroesophageal junction at 39cm from the incisors. Esophagus normal appearing. The scope was removed without difficulty. 2) Situated room for colonoscopy. Rectal exam was performed revealing no abnormalities. A lubricated Olympus Video Colonoscope was inserted into the rectum and air insufflation was performed. The colonoscope was advanced through the rectum, sigmoid, descending, transverse, and ascending colon without difficulties. The cecum was reached and the ileocecal valve as well as the appendiceal orifice were identified and pictorially documented as well as ileocecal valve intubated. After adequate visualization of the cecum, the scope was withdrawn, giving 360-degree views of the colonic mucosa and retroflexion was performed in the rectum with the following findings noted: Ileocecal valve: Normal Cecum: Normal Ascending colon: Normal Hepatic flexure: Normal Transverse colon: Normal Splenic flexure: Normal Descending colon: Normal Sigmoid colon: Occasional small diverticuli Rectum: Normal The scope was straightened, air suction performed, and the scope withdrawn without complication. Preparation adequacy good. Patient tolerated the procedures well. No complications. IMPRESSION: 1) Esophagogastroduodenoscopy performed revealing mild gastritis with pathology now pending for biopsies. 2) Colonoscopy performed revealing mild sigmoid diverticulosis. PLAN: Will contact the patient when pathology results received. Discussed appropriate administration of antacid medication. Encourage increased fiber diet and bowel regimen to ensure 1-2 soft bowel movements per day.
[2020-07-28 10:44] VITALS: PULSE 69
[2020-07-28 10:57] VITALS: BP 141/102
== END 2020-07-28 12:05 | disposition home or self-care (01) ==
LOC: KA.SDS 08:01
PROVIDERS: ATTEND Family Medicine
DX: Z12.11 Encounter for screening for malignant neoplasm of colon (principal); K29.50 Unspecified chronic gastritis without bleeding; K57.30 Diverticulosis of large intestine without perforation or abscess without bleeding; K27.9 Peptic ulcer, site unspecified, unspecified as acute or chronic, without hemorrhage or perforation
CPT/HCPCS: 00811; 82962; J2250; J2405; J2704; J7030